=== PATIENT | female | born 1980 | race Hispanic/Latino ===

== ENCOUNTER 2024-12-03 12:37 | Outpatient (CLI) | payer BC | END 2024-12-03 12:38 | disposition home or self-care (01) | LOC: SCSRAD 12:37 | PROVIDERS: ATTEND Physician Assistant | DX: R22.43 Localized swelling, mass and lump, lower limb, bilateral (principal); M25.511 Pain in right shoulder; M19.072 Primary osteoarthritis, left ankle and foot; M25.872 Other specified joint disorders, left ankle and foot | CPT/HCPCS: 36415; 84550 ==